=== PATIENT | female | born 1985 | race Caucasian/White ===

== ENCOUNTER 2020-01-01 11:05 | Emergency (ER) | payer BC ==
[~2020-01-01] VITALS: Ht 167.6 cm; Wt 80.0 kg
[2020-01-01] MEDS ORDERED: oxymetazoline 15 ML nasal spray NS ONE (11:20)
[2020-01-01 12:40] LABS: BASOPHILS % (AUTO) 0.2 % (0-1); EOSINOPHILS % (AUTO) 0.2 % (0-6); HEMATOCRIT 33.5 % (35.0-45.0); HEMOGLOBIN 11.2 g/dl (12.0-16.0); LYMPHOCYTES # (AUTO) 1.3 X10'3 (1.1-4.8); LYMPHOCYTES % (AUTO) 13.3 % (21-51); MEAN CORPUSCULAR HEMOGLOBIN 27.4 PG (27.0-31.0); MEAN CORPUSCULAR HGB CONC 33.4 g/dL (33.0-36.5); MEAN CORPUSCULAR VOLUME 82.1 FL (78-98); MONOCYTES # (AUTO) 0.6 X10'3 (0-0.9); NEUTROPHILS # (AUTO) 7.8 X10'3 (1.8-7.7); NEUTROPHILS % (AUTO) 80.3 % (42-75); PLATELET COUNT 250 X10'3 (140-440); RED BLOOD COUNT 4.08 X10'6 (4.20-5.60); RED CELL DISTRIBUTION WIDTH 13.5 % (11.5-14.5); WHITE BLOOD COUNT 9.7 X10'3 (4.5-11.0)
[2020-01-01 13:15] VITALS: BP 115/67
== END 2020-01-01 13:16 | disposition home or self-care (01) ==
LOC: ER 11:06
DX: O26.892 Other specified pregnancy related conditions, second trimester (principal); R04.0 Epistaxis; O99.012 Anemia complicating pregnancy, second trimester; Z3A.23 23 weeks gestation of pregnancy; Z88.0 Allergy status to penicillin
CPT/HCPCS: 36415; 85025; 99283

== ENCOUNTER 2020-04-22 02:46 | Emergency (ER) | payer BC ==
[~2020-04-22] VITALS: Ht 167.6 cm; Wt 81.8 kg
[2020-04-22 03:44] LABS: BASOPHILS # (AUTO) 0.1 X10'3 (0-0.2); BASOPHILS % (AUTO) 0.6 % (0-1); EOSINOPHILS # (AUTO) 0.2 X10'3 (0-0.9); EOSINOPHILS % (AUTO) 1.6 % (0-6); HEMATOCRIT 33.9 % (35.0-45.0); HEMOGLOBIN 11.2 g/dl (12.0-16.0); LYMPHOCYTES # (AUTO) 2.3 X10'3 (1.1-4.8); LYMPHOCYTES % (AUTO) 22.6 % (21-51); MEAN CORPUSCULAR HEMOGLOBIN 27.9 PG (27.0-31.0); MEAN CORPUSCULAR HGB CONC 33.1 g/dL (33.0-36.5); MEAN CORPUSCULAR VOLUME 84.4 FL (78-98); MEAN PLATELET VOLUME 7.2 FL (7.4-10.4); MONOCYTES # (AUTO) 0.7 X10'3 (0-0.9); MONOCYTES % (AUTO) 6.7 % (2-12); NEUTROPHILS # (AUTO) 7.1 X10'3 (1.8-7.7); NEUTROPHILS % (AUTO) 68.5 % (42-75); PLATELET COUNT 258 X10'3 (140-440); RED BLOOD COUNT 4.02 X10'6 (4.20-5.60); RED CELL DISTRIBUTION WIDTH 14.3 % (11.5-14.5); WHITE BLOOD COUNT 10.4 X10'3 (4.5-11.0)
[2020-04-22 03:58] LABS: D-DIMER 3.47 MG/L FEU (0-0.50)
[2020-04-22 04:02] LABS: CLARITY,URINE CLEAR (Clear); COLOR,URINE YELLOW (Yellow); GLUCOSE, URINE NEGATIVE (Neg); KETONES,URINE NEGATIVE (Neg); LEUKOCYTE ESTERASE ,URINE NEGATIVE (Neg); NITRITES, URINE NEGATIVE (Neg); OCCULT BLOOD,URINE SMALL (Neg); PROTEIN,URINE NEGATIVE (Neg); UROBILINOGEN,URINE 0.2 E.U/dL (0.2-1.0)
[2020-04-22 04:02] LABS: ALANINE AMINOTRANSFERASE 68 U/L (12-78); ALBUMIN 2.7 G/DL (3.4-5.0); ALBUMIN/GLOBULIN RATIO 0.8 (1.1-1.5); ALKALINE PHOSPHATASE 122 IU/L (46-116); ANION GAP 10 (8-16); ASPARTATE AMINO TRANSFERASE 65 U/L (10-37); BILIRUBIN,TOTAL 0.2 MG/DL (0.1-1.0); BLOOD UREA NITROGEN 10 MG/DL (7-18); BUN/CREATININE RATIO 16.1 (6.6-38.0); CALCIUM 8.1 MG/DL (8.5-10.1); CHLORIDE 107 MMOL/L (99-107); CREATININE 0.62 MG/DL (0.40-0.90); GLUCOSE 79 MG/DL (70-104); POTASSIUM 3.5 MMOL/L (3.5-5.1); SODIUM 141 MMOL/L (135-145); TOTAL CARBON DIOXIDE 24.4 MMOL/L (24-32); TOTAL PROTEIN 6.1 G/DL (6.4-8.2); eGFR > 90 ML/MIN
[2020-04-22 04:08] LABS: UA COLLECTION TYPE CLN CATCH MIDSTREAM
[2020-04-22 04:08] LABS: C-REACTIVE PROTEIN 0.68 MG/DL (0.0-0.5)
[2020-04-22 04:10] LABS: BACTERIA,URINE NONE SEEN /HPF (Neg); RBC,URINE 0-2 /HPF (0-2); SQUAMOUS EPITHELIAL CELL,UR NONE SEEN /LPF (FEW); WBC,URINE NONE SEEN /HPF (0-4)
[2020-04-22] MEDS ORDERED: iohexol 350MG/ML 100ml bottle IV ONE (04:40)
[2020-04-22] MEDS ORDERED: LORazepam 2 mg/ml vial IV ONE (05:55)
--- NOTE | 2020-04-22 06:21 | NUR ---
PT CURRENTLY HAVING ECHO DONE AT BEDSIDE.
[2020-04-22 06:50] VITALS: BP 128/71
== END 2020-04-22 06:52 | disposition home or self-care (01) ==
LOC: ER 02:47
DX: R07.89 Other chest pain (principal); Z88.0 Allergy status to penicillin
CPT/HCPCS: 36415; 71045; 71275; 80053; 81001; 83880; 84484; 85025; 85379; 85651; 86140; 93005; 93306; 96374; 99285; J2060; Q9967

== ENCOUNTER 2024-09-29 05:29 | Day surgery (SDC) | payer OTHER ==
[2024-09-22 15:58] LABS: BASOPHILS % (AUTO) 0.4 % (0-1); EOSINOPHILS % (AUTO) 0.4 % (0-6); LYMPHOCYTES # (AUTO) 2.8 X10'3 (1.1-4.8); LYMPHOCYTES % (AUTO) 26.2 % (21-51); MEAN CORPUSCULAR HEMOGLOBIN 26.8 PG (27.0-31.0); MEAN CORPUSCULAR HGB CONC 33.4 g/dL (33.0-36.5); MEAN CORPUSCULAR VOLUME 80.4 FL (78-98); MEAN PLATELET VOLUME 6.9 FL (7.4-10.4); MONOCYTES # (AUTO) 0.7 X10'3 (0-0.9); MONOCYTES % (AUTO) 6.4 % (2-12); NEUTROPHILS # (AUTO) 7.2 X10'3 (1.8-7.7); NEUTROPHILS % (AUTO) 66.6 % (42-75); PRE OP HEMATOCRIT 36.9 % (35.0-45.0); PRE OP HEMOGLOBIN 12.3 g/dL (12.0-16.0); PRE OP PLATELET COUNT 333 X10'3 (140-440); PRE OP WHITE BLOOD COUNT 10.8 10'3 (4.8-10.8); RED BLOOD COUNT 4.58 X10'6 (4.20-5.60)
[2024-09-22 16:02] LABS: BILIRUBIN,URINE NEGATIVE (Neg); CLARITY,URINE SLIGHTLY CLOUDY (Clear); COLOR,URINE STRAW (Yellow); GLUCOSE, URINE NEGATIVE (Neg); KETONES,URINE NEGATIVE (Neg); LEUKOCYTE ESTERASE ,URINE NEGATIVE (Neg); NITRITES, URINE NEGATIVE (Neg); OCCULT BLOOD,URINE NEGATIVE (Neg); PROTEIN,URINE NEGATIVE (Neg); UROBILINOGEN,URINE 0.2 E.U/dL (0.2-1.0)
[2024-09-22 16:14] LABS: UA COLLECTION TYPE NON-SPECIFIED
[2024-09-22 16:22] LABS: BACTERIA,URINE 2+ /HPF (Neg); MUCUS STRANDS FEW /LPF (Neg); RBC,URINE 20-50 /HPF (0-2); SQUAMOUS EPITHELIAL CELL,UR FEW /LPF (FEW); WBC,URINE 0-4 /HPF (0-4)
[2024-09-22 16:28] LABS: ALBUMIN 4.1 G/DL (3.4-5.0); ALBUMIN/GLOBULIN RATIO 1.2 (1.1-1.5); ALKALINE PHOSPHATASE 60 IU/L (46-116); BLOOD UREA NITROGEN 10 MG/DL (7-18); BUN/CREATININE RATIO 15.4 (10.0-20.0); CALCIUM 8.7 MG/DL (8.5-10.1); CHLORIDE 104 MMOL/L (99-107); CREATININE 0.65 MG/DL (0.40-0.90); PRE OP ALT 20 U/L (30-65); PRE OP ANION GAP 7 (8-16); PRE OP AST 14 U/L (10-37); PRE OP BILIRUB, TOTAL 0.3 MG/DL (0.0-1.0); PRE OP GLUCOSE 74 MG/DL (70-104); PRE OP POTASSIUM 3.4 MMOL/L (3.4-5.1); PRE OP SODIUM 140 MMOL/L (135-145); TOTAL PROTEIN 7.5 G/DL (6.4-8.2); eGFR > 90 ML/MIN
[2024-09-22 16:33] LABS: HCG SERUM QL NEGATIVE
[~2024-09-29] VITALS: Ht 167.6 cm; Wt 74.7 kg
[2024-09-29] VITALS (19 sets, daily range): BP systolic 89–114; BP diastolic 45–65; PULSE 68–92; RESP 13–20; TEMP 97.5–98.8; O2SAT 94–100
[~2024-09-29 05:29] MED LIST: ACAM333T8 PO; CLON1TAB12 PO; SERT-434 PO
[2024-09-29] MEDS: clindamycin-Cleocin 900mg/D5W 50 ML IV ONE (05:30)
[2024-09-29] MEDS: NORMAL SALINE IV ONE (06:28)
[2024-09-29] MEDS: famotidine 20mg tablet PO ONE (06:28)
[2024-09-29] MEDS: GENTAMICIN IV ONE (06:28)
[2024-09-29] MEDS: ringers solution, lacted 1,000 ML IV SCH ×3 (06:29→11:45)
[2024-09-29] MEDS ORDERED: clindamycin phosphate 40gm vag cream ONE (07:04)
[2024-09-29] MEDS ORDERED: BUPIVAcaine 2.5mg/ml inj 50ml vial (contains preservative) ONE (07:04)
[2024-09-29] MEDS ORDERED: BUPIVAcaine/PF 2.5mg/ml (0.25%) 10ml vial ONE (07:04)
[2024-09-29] MEDS ORDERED: neomy sulf/polymyxin B sulf. GU irrigation 1ml amp IR ONE (07:05)
[2024-09-29] MEDS ORDERED: vasoPRESSIN 20 units/ml inj. ONE (07:07)
[2024-09-29] MEDS ORDERED: midazolam 1 mg/ML 2ml injection ONE (07:20)
[2024-09-29] MEDS: midazolam 1 mg/ML 2ml injection IV PRN (07:21)
[2024-09-29] MEDS ORDERED: fentaNYL /PF 50mcg/ml 5ml ampule ONE (07:21)
[2024-09-29] MEDS ORDERED: acetaminophen 1,000mg/100ml IV 100 ML IV ONE (07:22)
[2024-09-29] MEDS ORDERED: LIDOcaine 2% (20mg/ml) 5ml vial ONE (07:23)
[2024-09-29] MEDS ORDERED: propofol inj 20 ML IV ONE (07:23)
[2024-09-29] MEDS ORDERED: dexamethasone sod phosphate 4mg/ml inj. ONE (07:23)
[2024-09-29] MEDS ORDERED: ondansetron/PF 4mg/2ml inj ONE (07:23)
[2024-09-29] MEDS ORDERED: rocuronium 10mg/ml inj IV ONE ×3 (07:23→09:14)
[2024-09-29] MEDS ORDERED: sevoflurane 250ml liquid IH ONE (07:26)
[2024-09-29] MEDS ORDERED: fentaNYL/PF 50MCG/1 ML 2ML syringe IV PRN (08:10)
[2024-09-29] MEDS ORDERED: hydrALAZINE 20mg/ml inj. IV PRN (08:10)
[2024-09-29] MEDS ORDERED: labetalol 20mg/4ml (5mg/ml) syringe IV PRN (08:10)
[2024-09-29] MEDS ORDERED: morphine 4 MG/ML inj SYRINge IV PRN (08:10)
[2024-09-29] MEDS ORDERED: morphine 2 MG/ML inj. syringe IV PRN (08:10)
[2024-09-29] MEDS: BUPIVAcaine/PF 2.5 mg/ml (0.25%) 30ml vial IJ ONE (08:16)
[2024-09-29] MEDS ORDERED: glycopyrrolate 0.2mg/ml inj ONE (08:35)
[2024-09-29] MEDS ORDERED: neostigmine methylsulfate 1 MG/ML 10ml vial ONE (08:35)
[2024-09-29] MEDS ORDERED: fluoroscein sod 10% (100mg/ml) 5ml vial ONE (11:13)
[2024-09-29] MEDS ORDERED: ondansetron/PF 4mg/2ml inj IV PRN (11:45)
[2024-09-29] MEDS ORDERED: diphenhydrAMINE 50 mg/ml inj IV PRN (11:45)
[2024-09-29] MEDS ORDERED: temazepam 15mg capsule PO PRN (11:45)
[2024-09-29] MEDS ORDERED: LORazepam 2 mg/ml vial IV PRN (11:45)
[2024-09-29] MEDS ORDERED: metoclopramide 5 mg/ml inj IV PRN (11:45)
[2024-09-29] MEDS ORDERED: normal saline 500ml IV soln 500 ML IV PRN (11:45)
[2024-09-29] MEDS ORDERED: magnesium hydroxide 30ml (MOM) UD suspension PO PRN (11:45)
[2024-09-29] MEDS: fentaNYL/PF 50MCG/1 ML 2ML syringe IV PRN (12:12)
[2024-09-29] MEDS: ketorolac trometh 30MG/ML vial 30 MG/ML VIAL IV PRN (13:51)
[2024-09-29] MEDS: ondansetron/PF 4mg/2ml inj IV PRN (13:54)
[2024-09-29] MEDS: simethicone 80mg chew tab PO SCH (13:58)
[2024-09-29] MEDS: HYDROcodone/acetaminophen 10/325mg tab PO PRN (16:31)
[2024-09-29] MEDS: docusate sod 100mg capsule PO SCH (20:08)
[2024-09-30 02:00] VITALS: BP 104/56; PULSE 93; RESP 16; TEMP 98.8; O2SAT 98
[2024-09-30] MEDS: HYDROcodone/acetaminophen 10/325mg tab PO PRN (02:12)
[2024-09-30 05:19] LABS: BASOPHILS % (AUTO) 0.3 % (0-1); EOSINOPHILS # (AUTO) 0.1 X10'3 (0-0.9); EOSINOPHILS % (AUTO) 0.5 % (0-6); HEMATOCRIT 26.8 % (35.0-45.0); LYMPHOCYTES # (AUTO) 2.4 X10'3 (1.1-4.8); LYMPHOCYTES % (AUTO) 20.9 % (21-51); MEAN CORPUSCULAR HEMOGLOBIN 26.9 PG (27.0-31.0); MEAN CORPUSCULAR HGB CONC 33.6 g/dL (33.0-36.5); MEAN PLATELET VOLUME 6.9 FL (7.4-10.4); MONOCYTES # (AUTO) 0.9 X10'3 (0-0.9); MONOCYTES % (AUTO) 8.2 % (2-12); NEUTROPHILS # (AUTO) 7.9 X10'3 (1.8-7.7); NEUTROPHILS % (AUTO) 70.1 % (42-75); PLATELET COUNT 213 X10'3 (140-440); RED BLOOD COUNT 3.35 X10'6 (4.20-5.60); RED CELL DISTRIBUTION WIDTH 13.2 % (11.5-14.5); WHITE BLOOD COUNT 11.3 X10'3 (4.5-11.0)
[2024-09-30 05:35] LABS: ALBUMIN 2.9 G/DL (3.4-5.0); ANION GAP 4 (8-16); BLOOD UREA NITROGEN 5 MG/DL (7-18); BUN/CREATININE RATIO 7.6 (10.0-20.0); CALCIUM 7.9 MG/DL (8.5-10.1); CHLORIDE 107 MMOL/L (99-107); CREATININE 0.66 MG/DL (0.40-0.90); GLUCOSE 101 MG/DL (70-104); POTASSIUM 3.2 MMOL/L (3.5-5.1); SODIUM 139 MMOL/L (135-145); TOTAL CARBON DIOXIDE 28.1 MMOL/L (24-32); eCRCL 106 ML/MIN; eGFR > 90 ML/MIN
[2024-09-30 06:00] VITALS: BP 101/56; PULSE 84; RESP 18; TEMP 97.7; O2SAT 100
[2024-09-30 08:00] VITALS: RESP 16; O2SAT 100
[2024-09-30] MEDS ORDERED: magnesium Cl slow-release 64mg tablet PO PRN (08:55)
[2024-09-30] MEDS ORDERED: potassium Cl 20 mEq SR tablet PO PRN (08:55)
[2024-09-30] MEDS: potassium Cl 20 mEq SR tablet PO PRN (09:41)
[2024-09-30 10:00] VITALS: BP 99/52; PULSE 79; RESP 15; TEMP 98.5; O2SAT 99
[2024-09-30 14:18] VITALS: RESP 16
[2024-09-30] MEDS ORDERED: K and/or MAG REPLACEMENT MC SCH (20:00)
== END 2024-09-30 14:19 | disposition home or self-care (01) ==
LOC: PAS 05:29 → SUR 3N 11:45 → PAS 09-30 14:19
PROVIDERS: ATTEND Obstetrics & Gynecology Obstetrics
DX: N81.89 Other female genital prolapse (principal); Z79.899 Other long term (current) drug therapy; N80.329 Endometriosis of the posterior cul-de-sac, unspecified depth; N81.10 Cystocele, unspecified; N81.6 Rectocele; F43.10 Post-traumatic stress disorder, unspecified; F42.9 Obsessive-compulsive disorder, unspecified; F41.9 Anxiety disorder, unspecified; Z88.0 Allergy status to penicillin; Z90.49 Acquired absence of other specified parts of digestive tract
CPT/HCPCS: 36415; 57260; 58552; 58662; 71046; 80048; 80053; 81001; 82948; 84703; 85025; 86885; 86900; 86901; J0131; J1100; J1580; J1885; J2003; J2250; J2405; J2704; J2710; J3010; J3490; J7030; J7120; Z7506; Z7508; Z7512; A4314; A4355; A4615; A4618; A7000; G0378